=== PATIENT | male | born 1960 | race Caucasian/White ===

== ENCOUNTER 2017-03-03 07:41 | Emergency (ER) | payer MEDICAID ==
[~2017-03-03] VITALS: Ht 175.3 cm; Wt 61.7 kg
[2017-03-03 07:41] VITALS: BP 121/53
[~2017-03-03 07:41] MED LIST: ALBU18HF INH; ALLO300T PO; DISU250T15 PO; LITH300C PO; OMEP-110 PO; TOPI25CA PO; TRAZ50TA18 PO
[2017-03-03] MEDS ORDERED: ALBUTEROL/IPRATROPIUM 2.5MG/0.5MG, 3 ML ONE (08:25)
[2017-03-03] MEDS ORDERED: ALBUTEROL/IPRATROPIUM 2.5MG/0.5MG, 3 ML NPPB ONE (08:30)
[2017-03-04] MEDS ORDERED: DISU500T2 PO (09:18)
== END 2017-03-03 09:09 | disposition home or self-care (01) ==
LOC: ED 08:49
DX: J20.8 Acute bronchitis due to other specified organisms (principal); B97.89 Other viral agents as the cause of diseases classified elsewhere; K75.9 Inflammatory liver disease, unspecified
CPT/HCPCS: 71020; 94640; 99284; J7512; J7620

== ENCOUNTER 2017-03-04 08:35 | Emergency (ER) | payer MEDICAID ==
[~2017-03-04] VITALS: Ht 175.3 cm; Wt 62.3 kg
[2017-03-04] MEDS ORDERED: DISU500T2 PO (09:18)
[2017-03-04 09:55] VITALS: BP 127/80
== END 2017-03-04 09:57 | disposition home or self-care (01) ==
LOC: ED 09:50
DX: J20.8 Acute bronchitis due to other specified organisms (principal)
CPT/HCPCS: 93005; 99283

== ENCOUNTER 2017-03-10 07:24 | Emergency (ER) | payer MEDICAID ==
[~2017-03-10] VITALS: Ht 175.3 cm; Wt 62.1 kg
[~2017-03-10 07:24] MED LIST changes: +DISU500T2 PO
[2017-03-10 07:26] VITALS: BP 117/70
[2017-03-10] MEDS ORDERED: ALBUTEROL SULFATE 2.5 MG/3 ML NPPB ONE (08:30)
[2017-03-10] MEDS ORDERED: ALBUTEROL SULFATE 2.5 MG/3 ML ONE (08:35)
== END 2017-03-10 09:17 | disposition home or self-care (01) ==
LOC: ED 07:58
DX: R07.89 Other chest pain (principal); J20.8 Acute bronchitis due to other specified organisms; J02.9 Acute pharyngitis, unspecified
CPT/HCPCS: 36415; 71020; 85025; 94640; 99285; J7613

== ENCOUNTER 2018-06-24 16:56 | Observation (INO) | payer MEDICAID ==
[~2018-06-24] VITALS: Ht 175.3 cm; Wt 63.3 kg
[~2018-06-24 16:56] MED LIST changes: +TRAZ-136 PO; -TRAZ50TA18 PO
[2018-06-24 17:32] LABS: BASOPHILS # (AUTO) 0.02 x10^3/uL (0-0.1); BASOPHILS % (AUTO) 0 % (0-1); EOSINOPHILS # (AUTO) 0.05 x10^3/uL (0-0.4); EOSINOPHILS % (AUTO) 1 % (1-7); LYMPHOCYTES # (AUTO) 1.43 x10^3/uL (1-3.4); LYMPHOCYTES % (AUTO) 16 % (22-44); MD NO; MEAN CORPUSCULAR HEMOGLOBIN 32.5 pg (27.5-34.5); MEAN CORPUSCULAR HGB CONC 33.7 g/dL (33.2-36.2); MEAN CORPUSCULAR VOLUME 96.2 fL (81-97); MEAN PLATELET VOLUME 7.7 fL (7.4-10.4); MONOCYTES # (AUTO) 0.32 x10^3/uL (0.2-0.8); MONOCYTES % (AUTO) 4 % (2-9); NEUTROPHILS # (AUTO) 6.92 x10^3/uL (1.8-6.8); NEUTROPHILS % (AUTO) 79 % (42-75); PLATELET COUNT 145 x10^3/uL (130-400); RED BLOOD COUNT 4.92 x10^6/uL (4.38-5.82); RED CELL DISTRIBUTION WIDTH 13.7 % (9.4-14.8)
[2018-06-24 17:38] LABS: ALANINE AMINOTRANSFERASE 49 U/L (12-78); ALBUMIN 3.7 g/dL (3.4-5.0); ANION GAP 10 mmol/L (5-15); CALCIUM 8.9 mg/dL (8.5-10.1); CHLORIDE 102 mmol/L (98-107); CREATININE 0.97 mg/dL (0.7-1.3)
[2018-06-24 17:40] LABS: ALKALINE PHOSPHATASE 87 U/L (45-117); TOTAL PROTEIN 7.2 g/dL (6.4-8.2)
[2018-06-24] MEDS ORDERED: MECLIZINE CHEWABLE 25 MG TAB PO ONE (19:00)
[2018-06-24] MEDS ORDERED: DIAZEPAM 5 MG TABLET PO ONE (21:30)
[2018-06-24 21:38] LABS: TROPONIN I < 0.015 ng/mL (0.000-0.045)
[2018-06-24] MEDS ORDERED: DIAZEPAM 5 MG TABLET ONE (21:39)
[2018-06-24] MEDS ORDERED: ENOXAPARIN 40 MG/0.4 ML SQ SCH (22:00)
[2018-06-24] MEDS ORDERED: ACETAMINOPHEN 325 MG TABLET PO PRN (22:00)
[2018-06-24] MEDS ORDERED: MECLIZINE CHEWABLE 25 MG TAB PO PRN (22:30)
[2018-06-25 01:55] VITALS: BP 119/72
[2018-06-25 04:37] LABS: MICROSCOPIC AUTO
[2018-06-25 04:38] LABS: CULTURE INDICATED? YES
[2018-06-25 04:48] LABS: AMPHETAMINE SCREEN, URINE Negative (Negative); BARBITURATE SCREEN, URINE Negative (Negative); BENZODIAZEPINE SCREEN, URINE Positive (Negative); CANNABINOID SCREEN, URINE Positive (Negative); COCAINE SCREEN, URINE Negative (Negative); METHADONE SCREEN, URINE Negative (Negative); OPIATE SCREEN, URINE Negative (Negative)
[2018-06-25 05:33] LABS: BASOPHILS # (AUTO) 0.05 x10^3/uL (0-0.1); BASOPHILS % (AUTO) 1 % (0-1); EOSINOPHILS % (AUTO) 2 % (1-7); LYMPHOCYTES # (AUTO) 1.93 x10^3/uL (1-3.4); LYMPHOCYTES % (AUTO) 38 % (22-44); MD NO; MEAN CORPUSCULAR HEMOGLOBIN 32.2 pg (27.5-34.5); MEAN CORPUSCULAR HGB CONC 33.4 g/dL (33.2-36.2); MEAN CORPUSCULAR VOLUME 96.6 fL (81-97); MEAN PLATELET VOLUME 7.8 fL (7.4-10.4); MONOCYTES # (AUTO) 0.34 x10^3/uL (0.2-0.8); MONOCYTES % (AUTO) 7 % (2-9); NEUTROPHILS # (AUTO) 2.73 x10^3/uL (1.8-6.8); NEUTROPHILS % (AUTO) 53 % (42-75); PLATELET COUNT 121 x10^3/uL (130-400); RED BLOOD COUNT 4.55 x10^6/uL (4.38-5.82); RED CELL DISTRIBUTION WIDTH 13.8 % (9.4-14.8)
[2018-06-25 05:44] LABS: ANION GAP 6 mmol/L (5-15); CHLORIDE 108 mmol/L (98-107)
[2018-06-25 05:46] LABS: CREATININE 0.94 mg/dL (0.7-1.3)
[2018-06-25 07:37] VITALS: BP 118/68
[2018-06-25] MEDS ORDERED: LITHIUM CARBONATE 300 MG CAPSULE PO SCH (09:00)
[2018-06-25] MEDS ORDERED: ALLOPURINOL 300 MG TABLET PO SCH (09:00)
[2018-06-25] MEDS ORDERED: OMEPRAZOLE 20 MG CAPSULE.DR PO SCH (09:00)
[2018-06-25] MEDS ORDERED: DISULFIRAM 250 MG TABLET PO SCH (09:00)
[2018-06-25] MEDS ORDERED: ALBUTEROL SULFATE 2.5 MG/3 ML NPPB SCH (09:00)
[2018-06-25] MEDS ORDERED: TRAZODONE 100MG TABLET PO SCH (21:00)
== END 2018-06-25 13:34 | disposition home or self-care (01) ==
LOC: ED 21:13 → EDIP 21:47 → INTOOBSV 21:47 → 4WST 22:33 → UNDODISIN 06-25 13:34
PROVIDERS: ADMIT Hospitalist; ATTEND Hospitalist
DX: R42 Dizziness and giddiness (principal); D69.6 Thrombocytopenia, unspecified; F10.11 Alcohol abuse, in remission; K74.60 Unspecified cirrhosis of liver; J44.9 Chronic obstructive pulmonary disease, unspecified; I10 Essential (primary) hypertension; R11.2 Nausea with vomiting, unspecified; F17.210 Nicotine dependence, cigarettes, uncomplicated; Z87.19 Personal history of other diseases of the digestive system; M10.9 Gout, unspecified; Z86.59 Personal history of other mental and behavioral disorders
CPT/HCPCS: 36415; 70551; 80048; 80053; 80307; 81001; 83735; 84100; 84484; 85025; 87086; 93005; 96372; 97162; 97166; 99285; G0378; J1650

== ENCOUNTER 2018-06-26 08:59 | Emergency (ER) | payer MEDICAID ==
[~2018-06-26] VITALS: Ht 175.3 cm; Wt 62.3 kg
[2018-06-26] MEDS ORDERED: MECLIZINE CHEWABLE 25 MG TAB PO ONE (10:00)
[2018-06-26] MEDS ORDERED: MECLIZINE CHEWABLE 25 MG TAB ONE (10:01)
[2018-06-26 10:09] LABS: BASOPHILS # (AUTO) 0.04 x10^3/uL (0-0.1); BASOPHILS % (AUTO) 1 % (0-1); EOSINOPHILS # (AUTO) 0.06 x10^3/uL (0-0.4); EOSINOPHILS % (AUTO) 1 % (1-7); LYMPHOCYTES # (AUTO) 1.25 x10^3/uL (1-3.4); LYMPHOCYTES % (AUTO) 22 % (22-44); MD NO; MEAN CORPUSCULAR HGB CONC 33.5 g/dL (33.2-36.2); MEAN CORPUSCULAR VOLUME 95.6 fL (81-97); MEAN PLATELET VOLUME 7.7 fL (7.4-10.4); MONOCYTES # (AUTO) 0.31 x10^3/uL (0.2-0.8); MONOCYTES % (AUTO) 5 % (2-9); NEUTROPHILS # (AUTO) 4.16 x10^3/uL (1.8-6.8); NEUTROPHILS % (AUTO) 71 % (42-75); PLATELET COUNT 119 x10^3/uL (130-400); RED BLOOD COUNT 4.49 x10^6/uL (4.38-5.82)
[2018-06-26 10:19] LABS: ALBUMIN 3.5 g/dL (3.4-5.0); ANION GAP 6 mmol/L (5-15); CALCIUM 8.5 mg/dL (8.5-10.1); CHLORIDE 109 mmol/L (98-107)
[2018-06-26 10:22] LABS: ALANINE AMINOTRANSFERASE 45 U/L (12-78); ALKALINE PHOSPHATASE 75 U/L (45-117); BILIRUBIN,TOTAL 0.8 mg/dL (0.2-1.0); CREATININE 0.87 mg/dL (0.7-1.3); TOTAL PROTEIN 6.6 g/dL (6.4-8.2)
[2018-06-26] MEDS ORDERED: SODIUM CHLORIDE 0.9% 1,000ML IVBOLUS ONE (10:30)
[2018-06-26 11:42] LABS: TROPONIN I < 0.015 ng/mL (0.000-0.045)
[2018-06-26 12:48] VITALS: BP 126/67
== END 2018-06-26 13:15 | disposition home or self-care (01) ==
LOC: ED 12:10
DX: R42 Dizziness and giddiness (principal); R10.9 Unspecified abdominal pain; R06.02 Shortness of breath; R53.83 Other fatigue; J44.9 Chronic obstructive pulmonary disease, unspecified; K74.60 Unspecified cirrhosis of liver
CPT/HCPCS: 36415; 71045; 80053; 80178; 83690; 84484; 85025; 93005; 96360; 99285; J7030

== ENCOUNTER 2018-08-28 22:38 | Inpatient (IN) | payer MEDICAID ==
[~2018-08-28] VITALS: Ht 177.8 cm; Wt 63.2 kg
[2018-08-28 23:22] LABS: BASOPHILS # (AUTO) 0.03 x10^3/uL (0-0.1); BASOPHILS % (AUTO) 1 % (0-1); EOSINOPHILS # (AUTO) 0.05 x10^3/uL (0-0.4); EOSINOPHILS % (AUTO) 1 % (1-7); LYMPHOCYTES # (AUTO) 1.66 x10^3/uL (1-3.4); LYMPHOCYTES % (AUTO) 32 % (22-44); MD NO; MEAN CORPUSCULAR HEMOGLOBIN 32.5 pg (27.5-34.5); MEAN CORPUSCULAR HGB CONC 33.8 g/dL (33.2-36.2); MEAN CORPUSCULAR VOLUME 96.2 fL (81-97); MEAN PLATELET VOLUME 7.8 fL (7.4-10.4); MONOCYTES # (AUTO) 0.29 x10^3/uL (0.2-0.8); MONOCYTES % (AUTO) 6 % (2-9); NEUTROPHILS # (AUTO) 3.25 x10^3/uL (1.8-6.8); NEUTROPHILS % (AUTO) 62 % (42-75); PLATELET COUNT 117 x10^3/uL (130-400); RED BLOOD COUNT 4.61 x10^6/uL (4.38-5.82)
[2018-08-28 23:33] LABS: ALBUMIN 3.2 g/dL (3.4-5.0); ANION GAP 7 mmol/L (5-15); CALCIUM 8.5 mg/dL (8.5-10.1); CHLORIDE 113 mmol/L (98-107); SALICYLATE LEVEL 2.4 mg/dL (2.8-20.0)
[2018-08-28 23:36] LABS: ALANINE AMINOTRANSFERASE 33 U/L (12-78); ALKALINE PHOSPHATASE 67 U/L (45-117); BILIRUBIN,TOTAL 0.7 mg/dL (0.2-1.0); CREATININE 0.79 mg/dL (0.7-1.3); TOTAL PROTEIN 6.2 g/dL (6.4-8.2)
[2018-08-28 23:38] LABS: ACETAMINOPHEN < 2 mcg/mL (10-30)
[2018-08-29] MEDS ORDERED: SODIUM CHLORIDE 0.9% 1,000 ML IV ONE (01:41)
[2018-08-29] MEDS ORDERED: ONDANSETRON 2MG/ML, 2ML IVPush PRN ×2 (02:00→02:30)
[2018-08-29 02:30] VITALS: BP 112/66
[2018-08-29] MEDS ORDERED: BISACODYL 10 MG SUPP PR PRN (02:30)
[2018-08-29] MEDS ORDERED: hydrALAzine 20 MG/ML, 1ML IVPush PRN (02:30)
[2018-08-29] MEDS ORDERED: POLYETHYLENE GLYCOL 17 GM PACKET PO PRN (02:30)
[2018-08-29] MEDS ORDERED: ONDANSETRON ODT 4 MG PO PRN (02:30)
[2018-08-29] MEDS ORDERED: DOCUSATE 100 MG CAPSULE PO PRN (02:30)
[2018-08-29] MEDS ORDERED: LABETALOL 5MG/ML, 20ML IVPush PRN (02:30)
[2018-08-29 02:52] LABS: FREE T4 (FREE THYROXINE) 1.24 ng/dL (0.76-1.46); THYROID STIMULATING HORMONE 0.486 mIU/L (0.358-3.740)
[2018-08-29] MEDS ORDERED: ALBUTEROL SULFATE 2.5 MG/3 ML NPPB PRN (03:00)
[2018-08-29 03:10] LABS: HEMOGLOBIN A1C 5.9 % (4.2-6.3)
[2018-08-29] MEDS: SODIUM CHLORIDE 0.9% 1,000 ML IV SCH ×2 (03:27→11:03)
[2018-08-29] MEDS: HEPARIN 5,000 UNITS/ML, 1ML SQ SCH ×3 (03:27→20:51)
[2018-08-29 05:43] LABS: BASOPHILS # (AUTO) 0.03 x10^3/uL (0-0.1); BASOPHILS % (AUTO) 1 % (0-1); EOSINOPHILS # (AUTO) 0.06 x10^3/uL (0-0.4); EOSINOPHILS % (AUTO) 2 % (1-7); LYMPHOCYTES # (AUTO) 1.72 x10^3/uL (1-3.4); LYMPHOCYTES % (AUTO) 47 % (22-44); MD NO; MEAN CORPUSCULAR HEMOGLOBIN 32.4 pg (27.5-34.5); MEAN CORPUSCULAR HGB CONC 33.7 g/dL (33.2-36.2); MEAN CORPUSCULAR VOLUME 96.1 fL (81-97); MEAN PLATELET VOLUME 7.5 fL (7.4-10.4); MONOCYTES # (AUTO) 0.25 x10^3/uL (0.2-0.8); MONOCYTES % (AUTO) 7 % (2-9); NEUTROPHILS # (AUTO) 1.62 x10^3/uL (1.8-6.8); NEUTROPHILS % (AUTO) 44 % (42-75); PLATELET COUNT 107 x10^3/uL (130-400); RED BLOOD COUNT 4.47 x10^6/uL (4.38-5.82); RED CELL DISTRIBUTION WIDTH 14.2 % (9.4-14.8)
[2018-08-29 05:46] LABS: CHLORIDE 114 mmol/L (98-107)
[2018-08-29 05:55] LABS: ALANINE AMINOTRANSFERASE 29 U/L (12-78); ALKALINE PHOSPHATASE 63 U/L (45-117); ANION GAP 6 mmol/L (5-15); BILIRUBIN,TOTAL 0.8 mg/dL (0.2-1.0); CALCIUM 8.3 mg/dL (8.5-10.1); TOTAL PROTEIN 5.9 g/dL (6.4-8.2)
[2018-08-29 07:14] VITALS: BP 116/69
[2018-08-29 08:46] LABS: MICROSCOPIC NOT IND
[2018-08-29 08:57] LABS: AMPHETAMINE SCREEN, URINE Negative (Negative); BARBITURATE SCREEN, URINE Negative (Negative); BENZODIAZEPINE SCREEN, URINE Positive (Negative); CANNABINOID SCREEN, URINE Positive (Negative); COCAINE SCREEN, URINE Negative (Negative); METHADONE SCREEN, URINE Negative (Negative); OPIATE SCREEN, URINE Negative (Negative)
[2018-08-29 08:59] LABS: CULTURE INDICATED? NO
[2018-08-29] MEDS: OMEPRAZOLE 20 MG CAPSULE.DR PO SCH (10:58)
[2018-08-29] MEDS: ALLOPURINOL 300 MG TABLET PO SCH (10:58)
[2018-08-29 14:06] VITALS: BP 122/74
[2018-08-29] MEDS ORDERED: LORazepam 1MG TABLET PO PRN (16:30)
[2018-08-29] MEDS ORDERED: OLANZAPINE 5 MG TABLET PO ONE (16:30)
[2018-08-29] MEDS ORDERED: LORazepam 2 MG/ML, 1ML IVPush PRN (17:00)
[2018-08-29 19:30] VITALS: BP 120/89
[2018-08-30 02:00] VITALS: BP 106/62
[2018-08-30 04:48] LABS: BASOPHILS # (AUTO) 0.02 x10^3/uL (0-0.1); BASOPHILS % (AUTO) 1 % (0-1); EOSINOPHILS # (AUTO) 0.05 x10^3/uL (0-0.4); EOSINOPHILS % (AUTO) 1 % (1-7); LYMPHOCYTES % (AUTO) 48 % (22-44); MD NO; MEAN CORPUSCULAR HEMOGLOBIN 32.7 pg (27.5-34.5); MEAN CORPUSCULAR VOLUME 96.3 fL (81-97); MONOCYTES % (AUTO) 6 % (2-9); NEUTROPHILS # (AUTO) 1.54 x10^3/uL (1.8-6.8); NEUTROPHILS % (AUTO) 44 % (42-75); PLATELET COUNT 110 x10^3/uL (130-400); RED BLOOD COUNT 4.23 x10^6/uL (4.38-5.82); RED CELL DISTRIBUTION WIDTH 14.1 % (9.4-14.8)
[2018-08-30 04:58] LABS: ANION GAP 7 mmol/L (5-15); CHLORIDE 112 mmol/L (98-107)
[2018-08-30 05:04] LABS: CHOL/HDL RATIO 3.8; CHOLESTEROL, TOTAL 111 mg/dL (140-239); CREATININE 0.74 mg/dL (0.7-1.3); HDL CHOL % 26 % (26-37); HDL CHOLESTEROL (DIRECT) 29 mg/dL (40-60); LDL CHOLESTEROL,CALCULATED 58 mg/dL (54-169); TRIGLYCERIDES 121 mg/dL (50-200); VLDL CHOLESTEROL 24 mg/dL (0-25)
[2018-08-30] MEDS: HEPARIN 5,000 UNITS/ML, 1ML SQ SCH ×3 (05:55→20:12)
[2018-08-30 07:39] VITALS: BP 133/67
[2018-08-30] MEDS: OLANZAPINE 5 MG TABLET PO SCH (09:00)
[2018-08-30] MEDS ORDERED: LORA2VIA6 IVPush (09:27)
[2018-08-30] MEDS ORDERED: LORA-446 PO (09:27)
[2018-08-30] MEDS ORDERED: OLAN5TAB9 PO (09:27)
[2018-08-30] MEDS: DISULFIRAM 250 MG TABLET PO SCH (10:12)
[2018-08-30] MEDS: OMEPRAZOLE 20 MG CAPSULE.DR PO SCH (10:13)
[2018-08-30] MEDS: ALLOPURINOL 300 MG TABLET PO SCH (10:13)
[2018-08-30 14:00] VITALS: BP 156/77
[2018-08-30 19:50] VITALS: BP 129/79
[2018-08-31 02:00] VITALS: BP 128/75
[2018-08-31] MEDS: HEPARIN 5,000 UNITS/ML, 1ML SQ SCH ×3 (05:04→20:37)
[2018-08-31] MEDS ORDERED: MAGNESIUM SULFATE PMX 2GM/50ML 50 ML IV ONE (07:00)
[2018-08-31 07:32] VITALS: BP 177/88
[2018-08-31] MEDS: OLANZAPINE 5 MG TABLET PO SCH (09:00)
[2018-08-31] MEDS: ALLOPURINOL 300 MG TABLET PO SCH (09:22)
[2018-08-31] MEDS: DISULFIRAM 250 MG TABLET PO SCH (09:22)
[2018-08-31] MEDS: OMEPRAZOLE 20 MG CAPSULE.DR PO SCH (09:23)
[2018-08-31 13:53] VITALS: BP 163/86
[2018-08-31 19:13] VITALS: BP 153/84
[2018-09-01 01:08] VITALS: BP 150/79
[2018-09-01] MEDS: HEPARIN 5,000 UNITS/ML, 1ML SQ SCH ×2 (05:02→13:00)
[2018-09-01 07:15] VITALS: BP 130/57
[2018-09-01] MEDS: OMEPRAZOLE 20 MG CAPSULE.DR PO SCH (08:50)
[2018-09-01] MEDS: ALLOPURINOL 300 MG TABLET PO SCH (08:50)
[2018-09-01] MEDS: OLANZAPINE 5 MG TABLET PO SCH (08:51)
[2018-09-01] MEDS: DISULFIRAM 250 MG TABLET PO SCH (08:54)
[2018-09-01 13:10] VITALS: BP 136/71
== END 2018-09-01 15:15 | DRG 917 ==
LOC: ED 22:56 → EDIP 08-29 01:41 → 4EST 08-29 02:35
PROVIDERS: ADMIT Internal Medicine; ATTEND Internal Medicine
DX: T43.212A Poisoning by selective serotonin and norepinephrine reuptake inhibitors, intentional self-harm, initial encounter (principal); G92 Toxic encephalopathy; T42.4X2A Poisoning by benzodiazepines, intentional self-harm, initial encounter; F32.9 Major depressive disorder, single episode, unspecified; F29 Unspecified psychosis not due to a substance or known physiological condition; F41.9 Anxiety disorder, unspecified; M10.9 Gout, unspecified; K21.9 Gastro-esophageal reflux disease without esophagitis; J44.9 Chronic obstructive pulmonary disease, unspecified; F17.210 Nicotine dependence, cigarettes, uncomplicated; Y92.89 Other specified places as the place of occurrence of the external cause
CPT/HCPCS: 36415; 71046; 80048; 80053; 80061; 80178; 80307; 80329; 81003; 83036; 83735; 84100; 84439; 84443; 85025; 93005; 99291; G0378; J1644; G0480; J3475; J7030

== ENCOUNTER 2018-09-01 11:00 | Inpatient (IN) | payer MEDICAID ==
[~2018-09-01] VITALS: Ht 175.3 cm; Wt 58.8 kg
[~2018-09-01 11:00] MED LIST changes: +LORA-446 PO; +LORA2VIA6 IVPush; +OLAN5TAB9 PO
[2018-09-01] MEDS ORDERED: DOCUSATE 100 MG CAPSULE PO PRN (12:00)
[2018-09-01] MEDS ORDERED: BISACODYL 10 MG SUPP PR PRN (12:00)
[2018-09-01] MEDS ORDERED: POLYETHYLENE GLYCOL 17 GM PACKET PO PRN (12:00)
[2018-09-01 15:59] VITALS: BP 148/94
[2018-09-01] MEDS ORDERED: LORazepam 1MG TABLET PO PRN (16:00)
[2018-09-01 20:33] VITALS: BP 157/88
[2018-09-01] MEDS: DISULFIRAM 250 MG TABLET PO SCH (21:26)
[2018-09-01] MEDS: OLANZAPINE 5 MG TABLET PO SCH (21:26)
[2018-09-01] MEDS: ACETAMINOPHEN 325 MG TABLET PO PRN (22:30)
[2018-09-02 04:55] LABS: BASOPHILS # (AUTO) 0.04 x10^3/uL (0-0.1); BASOPHILS % (AUTO) 1 % (0-1); EOSINOPHILS # (AUTO) 0.07 x10^3/uL (0-0.4); EOSINOPHILS % (AUTO) 2 % (1-7); LYMPHOCYTES # (AUTO) 1.75 x10^3/uL (1-3.4); LYMPHOCYTES % (AUTO) 39 % (22-44); MD NO; MEAN CORPUSCULAR HEMOGLOBIN 32.6 pg (27.5-34.5); MEAN CORPUSCULAR HGB CONC 34.2 g/dL (33.2-36.2); MEAN CORPUSCULAR VOLUME 95.3 fL (81-97); MEAN PLATELET VOLUME 8.1 fL (7.4-10.4); MONOCYTES % (AUTO) 9 % (2-9); NEUTROPHILS # (AUTO) 2.19 x10^3/uL (1.8-6.8); NEUTROPHILS % (AUTO) 49 % (42-75); PLATELET COUNT 105 x10^3/uL (130-400); RED BLOOD COUNT 4.61 x10^6/uL (4.38-5.82); RED CELL DISTRIBUTION WIDTH 14.1 % (9.4-14.8)
[2018-09-02 04:57] LABS: CHLORIDE 112 mmol/L (98-107)
[2018-09-02 05:26] LABS: ALANINE AMINOTRANSFERASE 37 U/L (12-78); ALBUMIN 3.3 g/dL (3.4-5.0); ALKALINE PHOSPHATASE 66 U/L (45-117); ANION GAP 7 mmol/L (5-15); BILIRUBIN,TOTAL 0.8 mg/dL (0.2-1.0); CALCIUM 8.1 mg/dL (8.5-10.1); CHOLESTEROL, TOTAL 125 mg/dL (140-239); CREATININE 0.66 mg/dL (0.7-1.3); FOLATE LEVEL 6.5 ng/mL (3.1-17.5); FREE T4 (FREE THYROXINE) 1.46 ng/dL (0.76-1.46); HDL CHOL % 33 % (26-37); HDL CHOLESTEROL (DIRECT) 41 mg/dL (40-60); LDL CHOLESTEROL,CALCULATED 67 mg/dL (54-169); LDL/HDL RATIO 1.6 (0.5-3.0); TOTAL PROTEIN 6.6 g/dL (6.4-8.2); TRIGLYCERIDES 86 mg/dL (50-200); VLDL CHOLESTEROL 17 mg/dL (0-25)
[2018-09-02] MEDS: OMEPRAZOLE 20 MG CAPSULE.DR PO SCH (07:45)
[2018-09-02 07:56] VITALS: BP 167/87
[2018-09-02] MEDS: ACETAMINOPHEN 325 MG TABLET PO PRN (08:16)
[2018-09-02] MEDS: ALLOPURINOL 300 MG TABLET PO SCH (08:17)
[2018-09-02] MEDS ORDERED: hydrOXYzine 25 MG/ML IM PRN ×2 (17:30→21:30)
[2018-09-02 19:42] VITALS: BP 171/91
[2018-09-02] MEDS: DISULFIRAM 250 MG TABLET PO SCH (21:35)
[2018-09-02] MEDS: OLANZAPINE 5 MG TABLET PO SCH (21:36)
[2018-09-03] MEDS: OMEPRAZOLE 20 MG CAPSULE.DR PO SCH (07:41)
[2018-09-03] MEDS: ALLOPURINOL 300 MG TABLET PO SCH (07:41)
[2018-09-03] MEDS: IBUPROFEN 200 MG TABLET PO PRN ×2 (07:49→21:01)
[2018-09-03 07:56] VITALS: BP 148/88
[2018-09-03 19:56] VITALS: BP 158/91
[2018-09-03] MEDS: DISULFIRAM 250 MG TABLET PO SCH (21:02)
[2018-09-03] MEDS: OLANZAPINE 5 MG TABLET PO SCH (21:02)
[2018-09-03] MEDS: OXCARBAZEPINE 150 MG TABLET PO SCH (21:03)
[2018-09-04] MEDS: OMEPRAZOLE 20 MG CAPSULE.DR PO SCH (07:26)
[2018-09-04 08:02] VITALS: BP 168/80
[2018-09-04] MEDS: ACETAMINOPHEN 325 MG TABLET PO PRN (08:31)
[2018-09-04] MEDS: ALLOPURINOL 300 MG TABLET PO SCH (08:31)
[2018-09-04] MEDS: OXCARBAZEPINE 150 MG TABLET PO SCH (08:31)
[2018-09-04] MEDS ORDERED: OMEP-110 PO (16:30)
[2018-09-04] MEDS ORDERED: DISU250T2 PO (16:30)
[2018-09-04] MEDS ORDERED: OXCA150T18 PO ×2 (16:30)
[2018-09-04] MEDS ORDERED: OLAN5TAB9 PO (16:30)
[2018-09-04] MEDS ORDERED: ALLO300T PO (16:30)
[2018-09-04 19:38] VITALS: BP 167/88
[2018-09-04] MEDS: DISULFIRAM 250 MG TABLET PO SCH (20:42)
[2018-09-04] MEDS: OLANZAPINE 5 MG TABLET PO SCH (20:44)
[2018-09-04] MEDS ORDERED: OXCARBAZEPINE 150 MG TABLET PO SCH (21:00)
[2018-09-04 21:54] VITALS: BP 153/89
[2018-09-05 07:59] VITALS: BP 165/88
[2018-09-05] MEDS: OMEPRAZOLE 20 MG CAPSULE.DR PO SCH (08:24)
[2018-09-05] MEDS: ALLOPURINOL 300 MG TABLET PO SCH (08:25)
[2018-09-05] MEDS ORDERED: OXCARBAZEPINE 150 MG TABLET PO SCH (09:00)
== END 2018-09-05 15:00 | disposition home or self-care (01) | DRG 885 ==
LOC: 3E 15:21
PROVIDERS: ADMIT Psychiatry & Neurology Psychosomatic Medicine; ATTEND Psychiatry & Neurology Psychosomatic Medicine
DX: F31.60 Bipolar disorder, current episode mixed, unspecified (principal); G93.40 Encephalopathy, unspecified; F23 Brief psychotic disorder; K21.9 Gastro-esophageal reflux disease without esophagitis; M10.9 Gout, unspecified; J44.9 Chronic obstructive pulmonary disease, unspecified; F41.9 Anxiety disorder, unspecified; F17.210 Nicotine dependence, cigarettes, uncomplicated; F10.10 Alcohol abuse, uncomplicated; F12.90 Cannabis use, unspecified, uncomplicated; Z79.899 Other long term (current) drug therapy; Z91.5 Personal history of self-harm; Z80.8 Family history of malignant neoplasm of other organs or systems; Z80.9 Family history of malignant neoplasm, unspecified; Z79.1 Long term (current) use of non-steroidal anti-inflammatories (NSAID)
CPT/HCPCS: 36415; 80053; 80061; 82140; 82607; 82746; 84439; 84443; 85025; 86592; 92523-GN; Q0177

== ENCOUNTER 2019-02-25 13:49 | Emergency (ER) | payer MEDICAID ==
[~2019-02-25] VITALS: Ht 177.8 cm; Wt 60.2 kg
[~2019-02-25 13:49] MED LIST changes: +DISU250T2 PO; +OXCA150T18 PO; -TRAZ-136 PO; +TRAZ50TA66 PO
[2019-02-25 13:59] VITALS: BP 159/72
[2019-02-25 14:24] LABS: BASOPHILS # (AUTO) 0.02 x10^3/uL (0-0.1); BASOPHILS % (AUTO) 0 % (0-1); EOSINOPHILS # (AUTO) 0.05 x10^3/uL (0-0.4); EOSINOPHILS % (AUTO) 1 % (1-7); LYMPHOCYTES # (AUTO) 1.35 x10^3/uL (1-3.4); LYMPHOCYTES % (AUTO) 26 % (22-44); MD NO; MEAN CORPUSCULAR HEMOGLOBIN 32.4 pg (27.5-34.5); MEAN CORPUSCULAR HGB CONC 33.2 g/dL (33.2-36.2); MEAN CORPUSCULAR VOLUME 97.5 fL (81-97); MEAN PLATELET VOLUME 7.8 fL (7.4-10.4); MONOCYTES # (AUTO) 0.27 x10^3/uL (0.2-0.8); MONOCYTES % (AUTO) 5 % (2-9); NEUTROPHILS # (AUTO) 3.45 x10^3/uL (1.8-6.8); NEUTROPHILS % (AUTO) 67 % (42-75); PLATELET COUNT 100 x10^3/uL (130-400); RED BLOOD COUNT 4.13 x10^6/uL (4.38-5.82); RED CELL DISTRIBUTION WIDTH 13.9 % (9.4-14.8)
[2019-02-25 14:35] LABS: ALANINE AMINOTRANSFERASE 49 U/L (12-78); ALBUMIN 3.6 g/dL (3.4-5.0); ANION GAP 5 mmol/L (5-15); CALCIUM 8.4 mg/dL (8.5-10.1); CHLORIDE 114 mmol/L (98-107); CREATININE 0.76 mg/dL (0.7-1.3)
[2019-02-25 14:37] LABS: ALKALINE PHOSPHATASE 92 U/L (45-117); BILIRUBIN,TOTAL 0.1 mg/dL (0.2-1.0); TOTAL PROTEIN 6.3 g/dL (6.4-8.2)
--- NOTE | 2019-02-25 16:49 | NUR ---
PT CALLED ED STATING HE IS LEAVING. DECLINES TO SPEAK WITH CHARGE AT THIS TIME.
== END 2019-02-25 16:51 | disposition left against medical advice (07) ==
LOC: ED 16:45
DX: R19.7 Diarrhea, unspecified (principal)
CPT/HCPCS: 36415; 71046; 80053; 83690; 85025; 99284

== ENCOUNTER 2019-02-26 08:10 | Emergency (ER) | payer MEDICAID ==
[~2019-02-26] VITALS: Ht 175.3 cm; Wt 59.6 kg
[2019-02-26 09:13] LABS: BASOPHILS # (AUTO) 0.03 x10^3/uL (0-0.1); BASOPHILS % (AUTO) 1 % (0-1); EOSINOPHILS # (AUTO) 0.05 x10^3/uL (0-0.4); EOSINOPHILS % (AUTO) 1 % (1-7); LYMPHOCYTES # (AUTO) 1.51 x10^3/uL (1-3.4); LYMPHOCYTES % (AUTO) 27 % (22-44); MD NO; MEAN CORPUSCULAR HGB CONC 33.1 g/dL (33.2-36.2); MEAN CORPUSCULAR VOLUME 96.5 fL (81-97); MEAN PLATELET VOLUME 7.9 fL (7.4-10.4); MONOCYTES # (AUTO) 0.33 x10^3/uL (0.2-0.8); MONOCYTES % (AUTO) 6 % (2-9); NEUTROPHILS # (AUTO) 3.77 x10^3/uL (1.8-6.8); NEUTROPHILS % (AUTO) 66 % (42-75); PLATELET COUNT 133 x10^3/uL (130-400); RED BLOOD COUNT 4.43 x10^6/uL (4.38-5.82); RED CELL DISTRIBUTION WIDTH 13.7 % (9.4-14.8)
[2019-02-26 09:14] LABS: MICROSCOPIC NOT IND
[2019-02-26 09:15] LABS: CULTURE INDICATED? NO
[2019-02-26 09:18] LABS: ALBUMIN 3.7 g/dL (3.4-5.0); ANION GAP 3 mmol/L (5-15); CALCIUM 8.2 mg/dL (8.5-10.1); CHLORIDE 111 mmol/L (98-107)
[2019-02-26 09:21] LABS: ALANINE AMINOTRANSFERASE 48 U/L (12-78); ALKALINE PHOSPHATASE 92 U/L (45-117); BILIRUBIN,TOTAL 0.9 mg/dL (0.2-1.0); TOTAL PROTEIN 6.6 g/dL (6.4-8.2)
--- NOTE | 2019-02-26 10:00 | NUR ---
REPORT FROM EZEQUIEL SIMONS, ALL RESULTS BACK (NO STOOL), PT FOR RECHECK.
--- NOTE | 2019-02-26 10:01 | NUR ---
report given to Gavi SIMONS
[2019-02-26 10:59] VITALS: BP 132/74
== END 2019-02-26 11:01 | disposition home or self-care (01) ==
LOC: ED 10:07
DX: R19.7 Diarrhea, unspecified (principal); R05 Cough; R39.11 Hesitancy of micturition; G89.29 Other chronic pain; F32.9 Major depressive disorder, single episode, unspecified; J44.9 Chronic obstructive pulmonary disease, unspecified
CPT/HCPCS: 36415; 80053; 81003; 85025; 99283

== ENCOUNTER 2019-05-04 07:15 | Emergency (ER) | payer MEDICAID ==
[~2019-05-04] VITALS: Ht 177.8 cm; Wt 58.8 kg
--- NOTE | 2019-05-04 07:30 | NUR ---
PT PRESENTS WITH C/O "A WOUND NEAR GENITAL AREA". ASSESSED THE AREA AND REPORTED THAT PT HAS AN ABSCESS. PLAN IS I/D OF AREA. PT APPEARS COMFORTABLE AND REPORTS HIS PAIN AT A 3/10. DENIES ANY NEEDS. NAD. BRANHAM. CALL LIGHT IN REACH. Addendum: 05/04/19 at 0800 by [email or web address] PT REPORTS HIS WOUND HAS BEEN THERE FOR 5 MONTHS.
[2019-05-04] MEDS ORDERED: LIDOCAINE-MPF 1%, 5ML ONE (07:49)
[2019-05-04] MEDS ORDERED: LIDOCAINE-MPF 1%, 5ML INFIL ONE (08:00)
[2019-05-04 08:57] VITALS: BP 124/86
--- NOTE | 2019-05-04 08:59 | NUR ---
Patient given discharge instructions and they have confirmed that they understand the instructions. Patient ambulatory with steady gait. vss. nad. Pt denies additional needs and states he wants to go home.
== END 2019-05-04 09:01 | disposition home or self-care (01) ==
LOC: ED 08:40
DX: L02.31 Cutaneous abscess of buttock (principal); K61.1 Rectal abscess
CPT/HCPCS: 10060; 99283

== ENCOUNTER 2019-05-19 07:14 | Emergency (ER) | payer MEDICAID ==
[~2019-05-19] VITALS: Ht 175.3 cm; Wt 60.0 kg
[2019-05-19 07:16] VITALS: BP 107/64
== END 2019-05-19 07:47 | disposition home or self-care (01) ==
LOC: ED 07:15
DX: K21.9 Gastro-esophageal reflux disease without esophagitis (principal); J44.9 Chronic obstructive pulmonary disease, unspecified; F17.210 Nicotine dependence, cigarettes, uncomplicated; Z76.0 Encounter for issue of repeat prescription
CPT/HCPCS: 99283

== ENCOUNTER 2019-12-26 13:40 | Emergency (ER) | payer MEDICAID ==
[~2019-12-26] VITALS: Ht 175.3 cm; Wt 61.0 kg
[~2019-12-26 13:40] MED LIST changes: -TOPI25CA PO; +TOPI25CA3 PO
--- NOTE | 2019-12-26 14:02 | NUR ---
Nohemy hernandez in [facility] - 12/26/19 at 1425 by ROBE CLEARING SUPERVISOR: PT TO ROOM FROM STEVEN CASTILLO
--- NOTE | 2019-12-26 14:25 | NUR ---
STOCKROOM ATTENDANT: PT TO ROOM FROM STEVEN CASTILLO
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
--- NOTE | 2019-12-26 14:37 | NUR ---
PT DENIES NAUSEA, EMESIS, VOMITING, OSORIO, OR SENSITIVITY TO LIGHTS. MOVING ALL EXTREMITIES APPROPRIATELY.
[2019-12-26] MEDS ORDERED: TRAZ50TA66 PO (14:44)
--- NOTE | 2019-12-26 15:17 | NUR ---
MD AT BEDSIDE ASSESSING PT NOW.
[2019-12-26] MEDS ORDERED: LIDOCAINE-MPF 1%, 5ML INFIL ONE (15:30)
[2019-12-26] MEDS ORDERED: L.E.T SOLUTION TP ONE ×2 (15:30)
[2019-12-26] MEDS ORDERED: DIPH,PERTUSS(ACELL),TET VAC/PF 0.5 ML IM-VACC ONE ×2 (15:30→15:32)
[2019-12-26] MEDS ORDERED: LIDOCAINE-MPF 1%, 5ML ONE (15:32)
--- NOTE | 2019-12-26 15:42 | NUR ---
LET PLACED ON WOUNDS ON FACE. PT MEDICATED PER EMAR. GOING TO CT NOW.
--- NOTE | 2019-12-26 16:02 | NUR ---
PT BACK FROM CT. RESTING ON [employer]. CONNECTED TO MONITOR. NADN. BRANHAM.
--- NOTE | 2019-12-26 16:24 | NUR ---
TECH AT BEDSIDE CLEANING WOUND AND PREPPING FOR SUTURES NOW.
--- NOTE | 2019-12-26 16:57 | NUR ---
PA AT BEDSIDE PLACING SUTURES WITH MEDICAL STUDENT NOW.
[2019-12-26 16:58] VITALS: BP 157/89
[2019-12-26] MEDS ORDERED: NEOSPORIN OINT. PKT 1 PACKET ONE (17:19)
== END 2019-12-26 17:52 | disposition home or self-care (01) ==
LOC: ED 17:45
DX: S01.81XA Laceration without foreign body of other part of head, initial encounter (principal); S06.9X1A Unspecified intracranial injury with loss of consciousness of 30 minutes or less, initial encounter; S00.81XA Abrasion of other part of head, initial encounter; S00.412A Abrasion of left ear, initial encounter; S50.812A Abrasion of left forearm, initial encounter; S50.811A Abrasion of right forearm, initial encounter; J44.9 Chronic obstructive pulmonary disease, unspecified; Y04.8XXA Assault by other bodily force, initial encounter; Y93.89 Activity, other specified; Y92.410 Unspecified street and highway as the place of occurrence of the external cause; Y99.8 Other external cause status
CPT/HCPCS: 12013; 70450; 70486; 90471; 90715; 93005

== ENCOUNTER 2019-12-30 10:07 | Emergency (ER) | payer MEDICAID ==
[~2019-12-30] VITALS: Ht 175.3 cm; Wt 61.8 kg
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
[2019-12-30 11:40] LABS: ALBUMIN 3.1 g/dL (3.4-5.0); ANION GAP 5 mmol/L (5-15); CALCIUM 8.2 mg/dL (8.5-10.1); CHLORIDE 110 mmol/L (98-107); CREATININE 0.77 mg/dL (0.7-1.3)
[2019-12-30 11:48] LABS: BASOPHILS # (AUTO) 0.02 x10^3/uL (0-0.1); BASOPHILS % (AUTO) 1 % (0-1); EOSINOPHILS # (AUTO) 0.03 x10^3/uL (0-0.4); EOSINOPHILS % (AUTO) 1 % (1-7); LYMPHOCYTES # (AUTO) 0.89 x10^3/uL (1-3.4); LYMPHOCYTES % (AUTO) 25 % (22-44); MD SCAN; MEAN CORPUSCULAR HEMOGLOBIN 35.8 pg (27.5-34.5); MEAN CORPUSCULAR HGB CONC 34.3 g/dL (33.2-36.2); MEAN CORPUSCULAR VOLUME 104.4 fL (81-97); MEAN PLATELET VOLUME 7.7 fL (7.4-10.4); MONOCYTES # (AUTO) 0.31 x10^3/uL (0.2-0.8); MONOCYTES % (AUTO) 9 % (2-9); NEUTROPHILS # (AUTO) 2.39 x10^3/uL (1.8-6.8); NEUTROPHILS % (AUTO) 66 % (42-75); PLATELET COUNT 92 x10^3/uL (130-400); RED CELL DISTRIBUTION WIDTH 12.9 % (9.4-14.8)
--- NOTE | 2019-12-30 12:27 | NUR ---
SHARON FARAH AT BEDSIDE FOR RECHECK/EXPLANATION OF RESULTS. PT VERBALIZES UNDERSTANDING. PT AO X 4. SKIN PWD. RESP EVEN AND UNLABORED. PT NSB 50'S ON COLLATING MACHINE OPERATOR. CALL LIGHT WITHIN REACH.
[2019-12-30 13:03] VITALS: BP 154/82
== END 2019-12-30 13:08 | disposition home or self-care (01) ==
LOC: ED 13:00
DX: S06.0X0A Concussion without loss of consciousness, initial encounter (principal); S16.1XXA Strain of muscle, fascia and tendon at neck level, initial encounter; J44.9 Chronic obstructive pulmonary disease, unspecified; F17.200 Nicotine dependence, unspecified, uncomplicated; X58.XXXA Exposure to other specified factors, initial encounter; Y93.89 Activity, other specified; Y92.410 Unspecified street and highway as the place of occurrence of the external cause; Y99.8 Other external cause status
CPT/HCPCS: 36415; 70450; 72125; 80048; 82040; 85025; 93005; 99285

== ENCOUNTER 2020-01-03 08:54 | Emergency (ER) | payer MEDICAID ==
[~2020-01-03] VITALS: Ht 175.3 cm; Wt 62.7 kg
[2020-01-03 08:56] VITALS: BP 129/65
--- NOTE | 2020-01-03 09:08 | NUR ---
DIANETIC COUNSELOR: PT TO ROOM AT THIS TIME.
--- NOTE | 2020-01-03 09:38 | NUR ---
Patient given discharge instructions and they have confirmed that they understand the instructions. Patient ambulatory with steady gait.
== END 2020-01-03 09:39 | disposition home or self-care (01) ==
LOC: ED 09:30
DX: S01.81XD Laceration without foreign body of other part of head, subsequent encounter (principal); X58.XXXD Exposure to other specified factors, subsequent encounter
CPT/HCPCS: 99281

== ENCOUNTER 2021-02-14 08:00 | Outpatient (CLI) | payer MEDICAID ==
[~2021-02-14] VITALS: Ht 175.3 cm; Wt 67.7 kg
[2021-02-14] MEDS ORDERED: PANT40TA6 PO (09:16)
[2021-02-14] MEDS ORDERED: ALLO100T30 PO (09:16)
[2021-02-14] MEDS ORDERED: UMEC1DIS INH (09:16)
== END 2021-02-14 23:59 | disposition home or self-care (01) ==
LOC: STAR 08:00 → OUT 02-15 08:12 → EDSTATUS 02-15 10:00
PROVIDERS: ATTEND Internal Medicine Geriatric Medicine
DX: Z01.818 Encounter for other preprocedural examination (principal); K31.89 Other diseases of stomach and duodenum; I44.7 Left bundle-branch block, unspecified; Z20.822 Contact with and (suspected) exposure to COVID-19
CPT/HCPCS: 93005; U0003

== ENCOUNTER 2021-02-25 09:41 | Outpatient (CLI) | payer MEDICAID ==
[~2021-02-25 09:41] MED LIST changes: +ALLO100T30 PO; +PANT40TA6 PO; +UMEC1DIS INH
== END 2021-02-25 23:59 | disposition home or self-care (01) ==
LOC: STAR 09:41
PROVIDERS: ATTEND Internal Medicine Geriatric Medicine
DX: Z20.822 Contact with and (suspected) exposure to COVID-19 (principal)
CPT/HCPCS: U0003

== ENCOUNTER 2021-03-01 07:38 | Day surgery (SDC) | payer MEDICAID ==
[~2021-03-01] VITALS: Ht 175.3 cm; Wt 63.7 kg
[~2021-03-01 07:38] MED LIST changes: +ACETAMINOPHEN 325 MG TABLET PO PRN; +EPHEDRINE 50 MG/ML, 1ML IVPush PRN; +FENTANYL PF 100 MCG/2ML IV PRN; +HYDROmorphone 1 MG/ML, 1ML INJ IVPush PRN; +LABETALOL 5MG/ML, 20ML IV PRN; +ONDANSETRON 2MG/ML, 2ML IVPush PRN; +OXYcodone 5 MG/5 ML ORAL.SOL UDC PO PRN; +PROMETHAZINE 25 MG/ML, 1ML IVPush PRN; +hydrALAzine 20 MG/ML, 1ML IV PRN
[2021-03-01] MEDS ORDERED: CHLORHEXIDINE 15 ML UDC PO ONE (08:00)
[2021-03-01] MEDS ORDERED: CHLORHEXIDINE 15 ML UDC ONE (08:05)
[2021-03-01 08:09] VITALS: BP 130/68
[2021-03-01] MEDS ORDERED: LACTATED RINGERS 1,000 ML IV SCH (08:30)
[2021-03-01] MEDS ORDERED: PROPOFOL 50 ML ONE (09:14)
[2021-03-01] MEDS ORDERED: PROPOFOL 10 MG/ML, 20ML ONE (09:14)
== END 2021-03-01 11:35 | disposition home or self-care (01) ==
LOC: OUT 07:38
PROVIDERS: ATTEND Internal Medicine
DX: D13.1 Benign neoplasm of stomach (principal); K31.89 Other diseases of stomach and duodenum; K74.69 Other cirrhosis of liver; I85.10 Secondary esophageal varices without bleeding; B18.2 Chronic viral hepatitis C; K76.6 Portal hypertension; F41.9 Anxiety disorder, unspecified; M10.9 Gout, unspecified; J44.9 Chronic obstructive pulmonary disease, unspecified; Z91.011 Allergy to milk products; F12.90 Cannabis use, unspecified, uncomplicated; Z98.890 Other specified postprocedural states; Z79.899 Other long term (current) drug therapy; Z72.89 Other problems related to lifestyle; Z87.891 Personal history of nicotine dependence
CPT/HCPCS: 43236; 43251; 43259; 88305; J2704; J7120

== ENCOUNTER 2021-07-08 11:44 | Emergency (ER) | payer MEDICAID ==
[~2021-07-08] VITALS: Ht 177.8 cm; Wt 60.0 kg
[~2021-07-08 11:44] MED LIST changes: -ACETAMINOPHEN 325 MG TABLET PO PRN; -EPHEDRINE 50 MG/ML, 1ML IVPush PRN; -FENTANYL PF 100 MCG/2ML IV PRN; -HYDROmorphone 1 MG/ML, 1ML INJ IVPush PRN; -LABETALOL 5MG/ML, 20ML IV PRN; +OLAN5TAB69 PO; -OLAN5TAB9 PO; -ONDANSETRON 2MG/ML, 2ML IVPush PRN; -OXYcodone 5 MG/5 ML ORAL.SOL UDC PO PRN; -PROMETHAZINE 25 MG/ML, 1ML IVPush PRN; -hydrALAzine 20 MG/ML, 1ML IV PRN
[2021-07-08 11:57] VITALS: BP 127/79
--- NOTE | 2021-07-08 12:09 | NUR ---
Pt walked from lobby to room by aviation technical systems specialist. auto job estimator completed at this time. Awaiting PA assessment.
[2021-07-08] MEDS ORDERED: [UNRECOGNIZED DRUG - OTHER] PO (12:13)
--- NOTE | 2021-07-08 12:25 | NUR ---
PA at bedside for exam
--- NOTE | 2021-07-08 13:15 | NUR ---
Lab at bedside for draw.
--- NOTE | 2021-07-08 13:22 | NUR ---
EMT at bedside for splint application.
[2021-07-08 13:39] LABS: BASOPHILS % (AUTO) 0 % (0-1); EOSINOPHILS % (AUTO) 4 % (1-7); LYMPHOCYTES % (AUTO) 30 % (22-44); MEAN CORPUSCULAR HEMOGLOBIN 35.2 pg (27.5-34.5); MEAN CORPUSCULAR HGB CONC 33.8 g/dL (33.2-36.2); MEAN PLATELET VOLUME 7.7 fL (7.4-10.4); MONOCYTES % (AUTO) 9 % (2-9); NEUTROPHILS % (AUTO) 57 % (42-75); PLATELET COUNT 85 x10^3/uL (130-400); RED BLOOD COUNT 3.82 x10^6/uL (4.38-5.82)
== END 2021-07-08 14:35 | disposition home or self-care (01) ==
LOC: ED 14:33
DX: S62.336A Displaced fracture of neck of fifth metacarpal bone, right hand, initial encounter for closed fracture (principal); J44.9 Chronic obstructive pulmonary disease, unspecified; X58.XXXA Exposure to other specified factors, initial encounter; Y93.89 Activity, other specified; Y92.89 Other specified places as the place of occurrence of the external cause; Y99.8 Other external cause status
CPT/HCPCS: 29125; 36415; 85025; 99284